=== PATIENT | female | born 1990 | race Caucasian/White ===

== ENCOUNTER 2017-08-13 12:42 | Emergency (ER) | payer MEDICAID ==
[2017-08-13 12:55] VITALS: RESP 18
[2017-08-13] MEDS ORDERED: Sodium Chloride 0.9% 1,000 ML IV STA (13:39)
[2017-08-13] MEDS ORDERED: Sodium Chloride 0.9% 1,000 ML ONE (13:42)
--- NOTE | 2017-08-13 13:45 | C.PDOC ---
History Of Present Illness 27 y/o female with PMHx of DM presents to ED with complaints of pain to both ears for 2 days. Patient states she is currently on Insulin and Metformin for diabetes. At ED patient state she is compliant with medication but reports sugar levels having maintained high for 1 week. Patient denies fever, sore throat, nausea, vomiting, headache or any other complaints at this time. Time Seen by Provider: 08/13/17 13:01 Chief Complaint (Nursing): ENT Problem History Per: Patient History/Exam Limitations: None Onset/Duration Of Symptoms: Days Current Symptoms Are (Timing): Still Present Quality (Ear): Pain W/Touch Past Medical History Reviewed: Historical Data, Nursing Documentation, Vital Signs Vital Signs: Last Vital Signs Temp 98.2 F 08/13/17 16:17 Pulse 75 08/13/17 16:17 Resp 18 08/13/17 16:17 BP 108/68 08/13/17 16:17 Pulse Ox 98 08/13/17 16:17 - Medical History PMH: No Chronic Diseases Surgical History: No Surg Hx Family History: States: No Known Family Hx - Social History Hx Alcohol Use: No Hx Substance Use: No - Immunization History Hx Tetanus Toxoid Vaccination: Yes Hx Influenza Vaccination: Yes Hx Pneumococcal Vaccination: Yes Review Of Systems Constitutional: Negative for: Fever, Chills ENT: Positive for: Ear Pain. Negative for: Ear Discharge, Throat Pain, Throat Swelling Cardiovascular: Negative for: Chest Pain Respiratory: Negative for: Shortness of Breath Skin: Negative for: Rash Neurological: Negative for: Headache Physical Exam - Physical Exam Appears: Non-toxic, No Acute Distress Skin: Normal Color, Warm, Dry, No Rash Head: Atraumatic, Normacephalic Eye(s): bilateral: Normal Inspection, PERRL, EOMI Ear(s): Bilateral: Other (TM mildly Hazy and bulging. External ear canals with mild erythema, no discharge. Tender to mastoid bilaterally) Oral Mucosa: Moist Throat: Normal, No Erythema, No Exudate Neck: Normal ROM, Supple Lymphatic: Adenopathy (preauricular) Chest: Symmetrical Cardiovascular: Rhythm Regular Respiratory: Normal Breath Sounds, No Accessory Muscle Use Gastrointestinal/Abdominal: Normal Exam, No Tenderness Extremity: Normal ROM, No Pedal Edema Neurological/Psych: Oriented x3, Normal Speech, Normal Cognition, Normal Cranial Nerves, Normal Motor, Normal Sensation ED Course And Treatment - Laboratory Results Result Diagrams: 08/13/17 14:00 08/13/17 14:00 O2 Sat by Pulse Oximetry: 100 (RA) Pulse Ox Interpretation: Normal Medical Decision Making Medical Decision Making: Accu check at ED was 300 Plan: CT scan, Full work up, UA. CT is negative for mastoiditis. Patient was treated with Insulin sq and Augmentin po. Patient was d/c home with PMD and ENT follow up. Disposition - Disposition Referrals: Roman Teran MD [Staff Provider] - Disposition: HOME/ ROUTINE Disposition Time: 15:57 Condition: STABLE Additional Instructions: Follow up with PMD and ENT specialist within 1-2 days. Return to ED if feel worse. Prescriptions: Amoxicillin/Clavulanate [Augmentin 875 MG-125 MG] 1 tab PO BID #14 tab Ciprofloxacin/Dexamethasone [Ciprodex 0.3%-0.1% 7.5 Ml] 4 drop OT BID #1 bottle Ibuprofen [Motrin Tab] 600 mg PO Q8 #30 tab Famotidine [Pepcid] 20 mg PO BID #20 tab Ondansetron ODT [Zofran ODT] 4 mg PO .Q4-6H PRN #20 odt PRN Reason: Nausea/Vomiting Instructions: Otitis Media (ED) Forms: [employer] (Hungarian), Work Excuse Print Language: ANDORRAN - Clinical Impression Clinical Impression: Otitis, Hyperglycemia - PA / RECRUITING TEAM LEAD / Resident Statement MD/DO has reviewed & agrees with the documentation as recorded. - Scribe Statement The provider has reviewed the documentation as recorded by the Milton Pierson All medical record entries made by the Milton were at my direction and personally dictated by me. I have reviewed the chart and agree that the record accurately reflects my personal performance of the history, physical exam, medical decision making, and the department course for this patient. I have also personally directed, reviewed, and agree with the discharge instructions and disposition.
[2017-08-13 14:03] LABS: EOS # 0.1 K/uL (0.0-0.7); LYMPH # 1.3 K/uL (1.0-4.3); MONO # 0.6 K/uL (0.0-0.8)
[2017-08-13 14:14] LABS: BASO % 0.4 % (0.0-2.0); EOS % 1.1 % (0.0-4.0); LYMPH % 18.6 % (20.0-40.0); MEAN CELL VOLUME 86.6 fL (81.0-99.0); MEAN CORPUSCULAR HEMOGLOBIN 29.3 pg (27.0-31.0); MEAN CORPUSCULAR HGB CONC 33.9 g/dL (33.0-37.0); MEAN PLATELET VOLUME 10.7 fL (7.2-11.7); MONO % 9.2 % (0.0-10.0); NRBC % 0.2 % (0.0-2.0); RED CELL DISTRIBUTION WIDTH 12.5 % (11.5-14.5)
[2017-08-13 14:16] LABS: CHLORIDE 95 mmol/L (98-107); POTASSIUM 4.3 mmol/L (3.6-5.2); SODIUM 131 mmol/L (132-148)
[2017-08-13 14:18] LABS: GFR AFRICAN-AMERICAN > 60
[2017-08-13 14:19] LABS: ALB/GLOB RATIO 1.7 (1.0-2.1); ALKALINE PHOSPHATASE 50 U/L (38-126); ALT/SGPT 26 U/L (9-52); AST/SGOT 24 U/L (14-36); BILIRUBIN,TOTAL 2.5 mg/dL (0.2-1.3); BLOOD UREA NITROGEN 14 mg/dL (7-17); CALCIUM 8.9 mg/dl (8.6-10.4); CARBON DIOXIDE 24 mmol/L (22-30); GLUCOSE,RANDOM 342 mg/dL (65-105); TOTAL PROTEIN 7.7 g/dL (6.3-8.3)
--- NOTE | 2017-08-13 15:16 | CT ---
PROCEDURE: CT OF THE TEMPORAL BONES WITHOUT CONTRAST HISTORY: IDDM, bilateral earache and mastoid tenderness COMPARISON: None available. TECHNIQUE: High resolution axial images of the temporal bones were obtained. Coronal and sagittal reformats were generated. Radiation dose: Total exam DLP = 650.99 mGy-cm. This CT exam was performed using one or more of the following dose reduction techniques: Automated exposure control, adjustment of the mA and/or kV according to patient size, and/or use of iterative reconstruction technique. FINDINGS: RIGHT TEMPORAL BONE: RIGHT MIDDLE EAR: Normal. RIGHT INNER EAR: Cochlea: Normal. Semicircular canals: Normal. RIGHT MASTOID AIR CELLS: Normal. RIGHT INTERNAL AUDITORY CANAL: Normal. RIGHT EXTERNAL AUDITORY CANAL: Normal. RIGHT VESTIBULAR AND COCHLEAR AQUEDUCT: Normal. OTHER FINDINGS: None. LEFT TEMPORAL BONE: LEFT MIDDLE EAR: Normal. LEFT INNER EAR: Cochlea: Normal. Semicircular canals: Normal. LEFT MASTOID AIR CELLS: Normal. LEFT INTERNAL AUDITORY CANAL: Normal. LEFT EXTERNAL AUDITORY CANAL: Normal. LEFT VESTIBULAR AND COCHLEAR AQUEDUCTS: Normal. OTHER FINDINGS: Small focal area polypoid like mucosal thickening left maxillary antrum. Left IMPRESSION: Unremarkable non contrast enhanced CT of the temporal bones with no evidence of acute otitis media or mastoiditis.
[2017-08-13] MEDS ORDERED: (Novolin R) Insulin Human Regular 100 units/ml vial SC ONE (15:30)
[2017-08-13] MEDS ORDERED: Amoxicillin-Clav 875-125 mg Tab PO STA (15:35)
[2017-08-13] MEDS ORDERED: Amoxicillin-Clav 875-125 mg Tab PO ONE (15:39)
[2017-08-13] MEDS ORDERED: (Novolin R) Insulin Human Regular 100 units/ml vial ONE (15:43)
[2017-08-13 16:18] VITALS: BP 108/68; PULSE 75; TEMP 98.2
[2017-08-14 09:59] VITALS: O2SAT 100
== END 2017-08-13 16:34 | disposition home or self-care (01) ==
LOC: C.ER 12:42
DX: H66.93 Otitis media, unspecified, bilateral (principal); E11.65 Type 2 diabetes mellitus with hyperglycemia; Z79.4 Long term (current) use of insulin; Z79.84 Long term (current) use of oral hypoglycemic drugs
CPT/HCPCS: 70480; 80053; 82009; 82948; 85025; 96360; 99283; J7040

== ENCOUNTER 2018-05-07 21:25 | Emergency (ER) | payer SELFPAY ==
[2018-05-07 21:47] LABS: SQUAMOUS EPITHIAL 1 /hpf (0-5); URINE BILIRUBIN NEGATIVE (NEGATIVE); URINE BLOOD NEGATIVE (NEGATIVE); URINE CLARITY Clear (Clear); URINE COLOR Straw (YELLOW); URINE GLUCOSE (UA) 3+ mg/dL (Normal); URINE LEUKOCYTE ESTERASE NEG Leu/uL (Negative); URINE PROTEIN NEGATIVE (NEGATIVE); URINE UROBILINOGEN NORMAL mg/dL (0.2-1.0)
[2018-05-07] MEDS ORDERED: Sodium Chloride 0.9% 1,000 ML IV ONE (21:49)
[2018-05-07] MEDS ORDERED: Sodium Chloride 0.9% 1,000 ML ONE (21:49)
[2018-05-07 21:53] LABS: HCG,QUALITATIVE URINE NEGATIVE (NEGATIVE)
[2018-05-07 22:01] LABS: BASO % 0.7 % (0.0-2.0); EOS # 0.1 K/uL (0.0-0.7); EOS % 1.9 % (0.0-4.0); HEMOGLOBIN 12.6 g/dL (11.0-16.0); LYMPH # 1.6 K/uL (1.0-4.3); MEAN CELL VOLUME 88.2 fL (81.0-99.0); MEAN CORPUSCULAR HEMOGLOBIN 29.5 pg (27.0-31.0); MEAN CORPUSCULAR HGB CONC 33.4 g/dL (33.0-37.0); MEAN PLATELET VOLUME 9.6 fL (7.2-11.7); MONO # 0.4 K/uL (0.0-0.8); MONO % 8.3 % (0.0-10.0); NEUT # 2.9 K/uL (1.8-7.0); NEUT % 57.1 % (50.0-75.0); NRBC % 0.1 % (0.0-2.0); RBC 4.26 Mil/uL (3.80-5.20); RED CELL DISTRIBUTION WIDTH 12.8 % (11.5-14.5)
[2018-05-07 22:14] LABS: ALB/GLOB RATIO 1.8 (1.0-2.1); ALBUMIN 4.8 g/dL (3.5-5.0); ALT/SGPT 21 U/L (9-52); AST/SGOT 11 U/L (14-36); BLOOD UREA NITROGEN 12 mg/dL (7-17); CALCIUM 9.6 mg/dl (8.6-10.4); GFR AFRICAN-AMERICAN > 60; GFR NON-AFRICAN AMERICAN > 60
[2018-05-07] MEDS ORDERED: (Novolin R) Insulin Human Regular 100 units/ml vial IV ONE (22:25)
[2018-05-07] MEDS ORDERED: (Novolin R) Insulin Human Regular 100 units/ml vial ONE (23:27)
--- NOTE | 2018-05-07 23:44 | C.PDOC ---
Time Seen by Provider: 05/07/18 21:53 Chief Complaint (Nursing): Abdominal Pain History Per: Patient Onset/Duration Of Symptoms: Hrs (since this morning) Current Symptoms Are (Timing): Still Present Severity: Moderate Location Of Pain/Discomfort: RLQ (pelvis) Quality Of Discomfort: "Pain" Exacerbating Factors: None Additional History Per: Prior Records Abnormal Vaginal Bleeding: No Past Medical History Reviewed: Historical Data, Nursing Documentation, Vital Signs Vital Signs: Last Vital Signs Temp 98.2 F 05/07/18 21:29 Pulse 89 05/07/18 23:45 Resp 18 05/07/18 23:45 BP 112/64 05/07/18 23:45 Pulse Ox 100 05/08/18 00:12 - Medical History PMH: Diabetes Surgical History: No Surg Hx Family History: States: Unknown Family Hx - Social History Hx Alcohol Use: No Hx Substance Use: No - Immunization History Hx Tetanus Toxoid Vaccination: Yes Hx Influenza Vaccination: Yes Hx Pneumococcal Vaccination: Yes Review Of Systems Except As Marked, All Systems Reviewed And Found Negative. Constitutional: Negative for: Fever, Weakness Cardiovascular: Negative for: Chest Pain Respiratory: Negative for: Shortness of Breath Gastrointestinal: Negative for: Vomiting, Diarrhea Genitourinary: Positive for: Pelvic Pain (right). Negative for: Dysuria, Vaginal Discharge, Vaginal Bleeding Musculoskeletal: Negative for: Neck Pain, Back Pain Skin: Negative for: Rash Neurological: Negative for: Weakness, Numbness Physical Exam - Physical Exam Appears: Non-toxic, No Acute Distress Skin: Normal Color, Warm, Dry, No Rash Head: Atraumatic, Normacephalic Eye(s): bilateral: PERRL, EOMI Neck: Normal ROM, Supple Cardiovascular: Rhythm Regular Respiratory: Normal Breath Sounds, No Accessory Muscle Use Gastrointestinal/Abdominal: Soft, Tenderness (mild right pelvic area), No Guarding, No Rebound Back: No CVA Tenderness Extremity: Normal ROM Neurological/Psych: Oriented x3, Normal Motor, Normal Sensation ED Course And Treatment - Laboratory Results Result Diagrams: 05/07/18 21:57 05/07/18 21:57 Lab Interpretation: Abnormal Interpretation Of Abnormal: Hyperglycemia Urine POC: Negative O2 Sat by Pulse Oximetry: 100 Pulse Ox Interpretation: Normal - CT Scan/US Pelvic US Other Rad Studies (CT/US): Read By Radiologist, Radiology Report Reviewed CT/US Interpretation: FINDINGS: Uterus/cervix: Retroverted uterus. No myometrial mass. Endometrium: 1.1 cm in thickness. Right ovary: 2.5 x 1.6 x 2.0 cm dominant follicle. Small follicles. Normal flow. Left ovary: No mass. Small follicles. Normal flow. Free fluid: Trace free fluid within pelvis. IMPRESSION: 1. No acute findings. 2. Non-acute findings are described above. Progress Note: Pt states that she stopped taking her Janumet a couple of weeks ago because she ran out of it and could not see her doctor because she lost her insurance. Reassessment Condition: Improved Progress - Interventions Interventions:: Observation, Intravenous fluid - Medications Administered Intravenous: NSAID, Other (Insulin) - Data Reviewed Data Reviewed: Lab, Diagnostic imaging, Old records - Patient Status Patient status: Mostly improved - Continuity of Care Discussed patient case with:: Patient, Family-HIPPA compliant, ED Nurse - Patient Plan Patient Plan: Discharge, F/U with PCP, Continue present meds Disposition Counseled Patient/Family Regarding: Studies Performed, Diagnosis, Need For Followup, Rx Given - Disposition Referrals: [facility] [Outside] Disposition: HOME/ ROUTINE Disposition Time: 00:08 Condition: IMPROVED Additional Instructions: Follow up with your doctor or in the clinic for further evaluation and treatment. Return to the ER if you develop fever, vomiting, vaginal discharge, worsening of symptoms or if you have any other concerns. Prescriptions: Sitagliptin Phos/Metformin HCl [Janumet 50-1,000 mg Tablet] 1 each PO BID #60 tablet Instructions: Painful Ovulation (DC) Forms: Gen Discharge Inst Latvian Print Language: MOZAMBICAN - Clinical Impression Clinical Impression: Uncontrolled diabetes mellitus, Acute pelvic pain, female
[2018-05-07 23:45] VITALS: BP 112/64; PULSE 89; RESP 18
[2018-05-07 23:46] VITALS: O2SAT 100
[2018-05-08 00:33] VITALS: TEMP 98.4
--- NOTE | 2018-05-08 08:45 | US ---
Date of service: 05/07/2018 HISTORY: Pelvic pain started today COMPARISON: None available. TECHNIQUE: Transabdominal and transvaginal pelvic ultrasound was performed. FINDINGS: UTERUS: Measures 8.6 x 3.6 x 5.3 cm. Retroverted, normal in size and appearance. No fibroid or other mass lesion seen. ENDOMETRIUM: Measures 11 mm in diameter. Unremarkable. CERVIX: No cervical abnormality identified. RIGHT OVARY: Measures 4.2 x 2.4 x 3.0 cm. No solid mass. Normal flow. There is a 2.5 x 1.6 x 2.0 cm simple cyst. LEFT OVARY: Measures 3.8 x 1.9 x 2.4 cm. No solid mass. Normal flow. FREE FLUID: Small amount of free fluid in the cul de sac is likely physiologic. OTHER FINDINGS: None. IMPRESSION: 2.5 cm simple cyst in the right ovary. Small amount of free fluid in the pelvis is likely physiologic. A preliminary report was provided by [facility].
== END 2018-05-08 00:33 | disposition home or self-care (01) ==
LOC: C.ER 21:25
DX: R10.2 Pelvic and perineal pain (principal); E11.65 Type 2 diabetes mellitus with hyperglycemia; Z79.84 Long term (current) use of oral hypoglycemic drugs
CPT/HCPCS: 76830; 76856; 80053; 81001; 82009; 82948; 84703; 85025; 96361; 96374; 96375; 99285; J1885; J7030

== ENCOUNTER 2018-10-14 18:44 | Emergency (ER) | payer MEDICAID ==
[2018-10-14 18:54] VITALS: BP 103/67; PULSE 79; RESP 18; TEMP 98.1; O2SAT 100
--- NOTE | 2018-10-14 20:22 | C.PDOC ---
History Of Present Illness The patient is a 28 year old female who underwent a hernia repair surgery by Dr. Cabello in June 2018. Patient presents to the ED today, stating the incision site has not fully closed and she has been experiencing intermittent drainage from the area. Patient is also complaining of a dry rash to her back that has not resolved since her surgery. Patient denies fever, chills, or pain to the site. Time Seen by Provider: 10/14/18 19:46 Chief Complaint (Nursing): Abnormal Skin Integrity History Per: Patient History/Exam Limitations: no limitations Onset/Duration Of Symptoms: Days Current Symptoms Are (Timing): Still Present Quality Of Symptoms: Draining. denies: Painful Additional History Per: Patient Past Medical History Reviewed: Historical Data, Nursing Documentation, Vital Signs Vital Signs: Last Vital Signs Temp 98.1 F 10/14/18 18:49 Pulse 79 10/14/18 18:49 Resp 18 10/14/18 18:49 BP 103/67 10/14/18 18:49 Pulse Ox 100 10/14/18 18:49 - Medical History PMH: Diabetes Denies: Chronic Kidney Disease Surgical History: No Surg Hx Family History: States: Unknown Family Hx - Social History Hx Alcohol Use: No Hx Substance Use: No - Immunization History Hx Tetanus Toxoid Vaccination: Yes Hx Influenza Vaccination: Yes Hx Pneumococcal Vaccination: Yes Review Of Systems Constitutional: Negative for: Fever, Chills Skin: Positive for: Other (drainage from umbilical incision s/p hernia repair ) Physical Exam - Physical Exam Appears: Non-toxic, No Acute Distress Skin: Warm, Dry, Rash (dry, hyperpigmented rash diffusely to back ), Other (punctate wound to the umbilicus with minimal moist, non-purulent drainage from the area. no fluctuant mass, no erythema, no warmth ) Head: Atraumatic, Normacephalic Eye(s): bilateral: Normal Inspection Gastrointestinal/Abdominal: Soft, No Tenderness, No Guarding, No Rebound Extremity: Normal ROM, Capillary Refill (less than 2 seconds ) Neurological/Psych: Oriented x3, Normal Speech, Normal Cognition ED Course And Treatment O2 Sat by Pulse Oximetry: 100 (on RA) Pulse Ox Interpretation: Normal Progress Note: On reassessment, patient is resting comfortably, showing no signs of distress and is stable for discharge. Patient states she is scheduled for an appointment with Dr. Cabello next week. Patient is advised to continue wound care and apply topical antibiotic ointment to the area. Patient given return instructions. Disposition Counseled Patient/Family Regarding: Diagnosis, Need For Followup, Rx Given - Disposition Disposition: HOME/ ROUTINE Disposition Time: 20:20 Condition: STABLE Additional Instructions: Please follow up with Dr Larios as scheduled nxt week May use hydrocortisone oint to back Return to ER if worse Prescriptions: Hydrocortisone 1% Cream [Cortizone 1% Cream] 1 appl TP BID #60 g Instructions: Surgical Wound (DC), Skin Rash (DC) Forms: [employer] (Indonesian) - Clinical Impression Clinical Impression: Visit for wound check, Dermatitis - PA / INDEPENDENT PRODUCER / Resident Statement MD/DO has reviewed & agrees with the documentation as recorded. - Scribe Statement The provider has reviewed the documentation as recorded by the Scribe (Fatimah Rosales) All medical record entries made by the Scribe were at my direction and personally dictated by me. I have reviewed the chart and agree that the record accurately reflects my personal performance of the history, physical exam, medical decision making, and the department course for this patient. I have also personally directed, reviewed, and agree with the discharge instructions and disposition.
== END 2018-10-14 20:30 | disposition home or self-care (01) ==
LOC: C.ER 18:44
DX: L30.9 Dermatitis, unspecified (principal); Z48.00 Encounter for change or removal of nonsurgical wound dressing; E11.9 Type 2 diabetes mellitus without complications

== ENCOUNTER 2018-12-02 13:12 | Emergency (ER) | payer MEDICAID ==
[2018-12-02 13:37] VITALS: RESP 16; TEMP 98.1
--- NOTE | 2018-12-02 14:26 | RAD ---
Date of service: 12/02/2018 HISTORY: Cough and fever COMPARISON: No prior. TECHNIQUE: Chest PA and lateral FINDINGS: LINES AND TUBES: None. LUNG AND PLEURA: The lungs are well inflated and clear. No pleural effusion or pneumothorax. HEART AND MEDIASTINUM: The heart is not enlarged. No aortic atherosclerotic calcifications present. The hilar and mediastinal contours are within normal limits. SKELETAL STRUCTURES: The bony structures are within normal limits for the patient's age. VISUALIZED UPPER ABDOMEN: Normal. OTHER FINDINGS: None. IMPRESSION: No active pulmonary disease.
[2018-12-02 14:38] LABS: INFLUENZA A B NEGATIVE FOR FLU A/B (NEGATIVE)
[2018-12-02 14:52] VITALS: BP 128/85; PULSE 78; O2SAT 98
--- NOTE | 2018-12-02 15:34 | C.PDOC ---
History Of Present Illness 28 y/o female with no PMHx presents to the ED for evaluation of sore throat, cough, and congestion for the last 2 days. Sore throat worse with swallowing. Cough is productive of white phlegm. Associated with a subjective fever. Patient is still tolerating PO. Denies recent travel. + Sick contact in the patients daughter. No flu vaccine this year. Denies any rashes, neck pain or stiffness, abdominal pain, nausea, vomiting, or urinary complaints. HPI: Influenza Time Seen by Provider: 12/02/18 13:34 Chief Complaint: Cough, Cold, Congestion Chief Complaint (Provider): Cough, Cold, Congestion History Per: Patient Exam Limitations: no limitations Have you had recent travel within the past 21 days to any of the following countries: [place], [place], [place] or [place]?: No Onset/Duration Of Symptoms: Days (2) Symptoms include: fever, sore throat, cough, nasal congestion Sick Contacts (Context): Family Member(s) (Daughter) Hx Influenza Vaccination: No Past Medical History Reviewed: Historical Data, Nursing Documentation, Vital Signs Vital Signs: Last Vital Signs Temp 98.1 F 12/02/18 13:34 Pulse 78 12/02/18 14:51 Resp 16 12/02/18 14:51 BP 128/85 12/02/18 14:51 Pulse Ox 98 12/02/18 14:51 - Medical History PMH: Diabetes Denies: Chronic Kidney Disease Family History: States: Unknown Family Hx - Social History Hx Alcohol Use: No Hx Substance Use: No - Immunization History Hx Tetanus Toxoid Vaccination: Yes Hx Influenza Vaccination: Yes Hx Pneumococcal Vaccination: Yes Review Of Systems Constitutional: Positive for: Fever Eyes: Negative for: Vision Change ENT: Positive for: Nose Discharge, Nose Congestion, Throat Pain Cardiovascular: Negative for: Chest Pain Respiratory: Positive for: Cough. Negative for: Shortness of Breath, Wheezing Gastrointestinal: Negative for: Nausea, Vomiting, Diarrhea Skin: Negative for: Rash Neurological: Negative for: Weakness, Numbness Physical Exam - Physical Exam Appears: Well, Non-toxic, No Acute Distress Skin: Warm, Dry, No Rash Head: Atraumatic, Normacephalic Eye(s): bilateral: Normal Inspection, PERRL, EOMI Ear(s): Bilateral: Normal Nose: Normal Oral Mucosa: Moist Throat: Normal, No Erythema, No Exudate Neck: Normal ROM Chest: Symmetrical Cardiovascular: Rhythm Regular, No Murmur Respiratory: Normal Breath Sounds, No Rales, No Rhonchi, No Wheezing Gastrointestinal/Abdominal: Soft, No Tenderness Extremity: Normal ROM, Capillary Refill (<2s) Extremity: Bilateral: Atraumatic, Normal Color And Temperature Pulses: Left Radial: Normal, Right Radial: Normal Neurological/Psych: Oriented x3, Normal Speech, Normal Motor, Normal Sensation Gait: Steady Medical Decision Making Medical Decision Making: Plan: - Chest x-ray - Rapid strep test - Flu swab - Throat culture sent CXR shows no acute disease. Labs reviewed: negative strep and flu Counseled patient regarding dx of viral URI. Provided rx for cough medication. Advised PMD followup tomorrow Patient remains afebrile and is stable for discharge home. Diagnostic testing results and plan of care discussed with patient. Strict instructions given regarding prescription use, importance of followup, and signs/symptoms to return to ER including difficulty breathing, chest pain, or any other new/worsening symptoms. Pt verbalized understanding of discussion. Patient is A&Ox3, ambulating with steady gait, with vital signs stable for discharge. - ECG O2 Sat by Pulse Oximetry: 98 (RA) Pulse Ox Interpretation: Normal - Other Rad CXR X-Ray: Read By Radiologist X-Ray Interpretation: No active pulmonary disease. Disposition Counseled Patient/Family Regarding: Diagnosis, Need For Followup, Rx Given - Disposition Referrals: [facility] at [facility] [Outside] Disposition: HOME/ ROUTINE Disposition Time: 14:46 Condition: STABLE Additional Instructions: Aumentar los fluidos Tylenol / motrin para el dolor y la fiebre Tessalon perles cada 8 horas segn sea necesario para la tos [place], no actividad vigorosa. Seguimiento con mdico primario en 2 mason. Prescriptions: Benzonatate [Tessalon Perle] 100 mg PO Q8H PRN #15 capsule PRN Reason: Cough Instructions: Upper Respiratory Infection (ED) Forms: Gen Discharge Inst Taiwanese, [employer] Connect (Kazakh), Work Excuse Print Language: SERBIAN - Clinical Impression Clinical Impression: Upper respiratory infection - PA / RESEARCH AND DEVELOPMENT DIRECTOR / Resident Statement MD/DO has reviewed & agrees with the documentation as recorded. - Scribe Statement The provider has reviewed the documentation as recorded by the Milton Underwood All medical record entries made by the Milton were at my direction and personally dictated by me. I have reviewed the chart and agree that the record accurately reflects my personal performance of the history, physical exam, medical decision making, and the department course for this patient. I have also personally directed, reviewed, and agree with the discharge instructions and disposition.
== END 2018-12-02 14:51 | disposition home or self-care (01) ==
LOC: C.ER 13:12
DX: J06.9 Acute upper respiratory infection, unspecified (principal)

== ENCOUNTER 2019-01-04 11:45 | Emergency (ER) | payer MEDICAID ==
[2019-01-04 12:54] VITALS: BMI 21.7
--- NOTE | 2019-01-04 13:16 | C.PDOC ---
History Of Present Illness 28 year old female, whose past medical history includes IDDM, presents to the ED for evaluation of generalized body aches x 3 days. Patient complains of body aches, ear pain, throat pain, back pain, and elbow pain. She also reports fever and slight nausea. She denies vomiting, diarrhea. She has not taken any medication today, and did not receive her flu vaccination this season. Time Seen by Provider: 01/04/19 12:46 Chief Complaint (Nursing): Cough, Cold, Congestion History Per: Patient History/Exam Limitations: no limitations Onset/Duration Of Symptoms: Hrs Current Symptoms Are (Timing): Still Present Past Medical History Reviewed: Historical Data, Nursing Documentation, Vital Signs - Medical History PMH: No Chronic Diseases, Diabetes Denies: Chronic Kidney Disease Surgical History: No Surg Hx Family History: States: Unknown Family Hx - Social History Hx Alcohol Use: No Hx Substance Use: No - Immunization History Hx Tetanus Toxoid Vaccination: Yes Hx Influenza Vaccination: Yes Hx Pneumococcal Vaccination: Yes Review Of Systems Constitutional: Positive for: Fever ENT: Positive for: Throat Pain Gastrointestinal: Positive for: Nausea. Negative for: Vomiting, Diarrhea Musculoskeletal: Positive for: Back Pain, Other (elbow pain, generalized body aches ) Physical Exam - Physical Exam Appears: Non-toxic, No Acute Distress Skin: Normal Color, Warm, Dry Head: Atraumatic, Normacephalic Eye(s): bilateral: Normal Inspection Ear(s): Bilateral: Normal Nose: Normal, No Discharge Oral Mucosa: Moist Throat: Erythema (mild), No Exudate Neck: Supple Chest: Symmetrical, No Deformity, No Tenderness Cardiovascular: Rhythm Regular, No Murmur Respiratory: Normal Breath Sounds, No Rales, No Rhonchi, No Wheezing Gastrointestinal/Abdominal: Soft, No Tenderness, No Guarding, No Rebound Extremity: Normal ROM Neurological/Psych: Oriented x3, Normal Speech, Normal Cognition Medical Decision Making Medical Decision Making: Progress: Flu swab ordered and reviewed. Tylenol PO, Motrin PO and Tamiflu PO given. On reassessment, patient is resting comfortably, showing no signs of distress and reports an improvement in her symptoms. Patient is stable for discharge and is advised to f/u with her PMD within 1-2 days for further evaluation. Disposition Counseled Patient/Family Regarding: Diagnosis - Disposition Disposition: HOME/ ROUTINE Disposition Time: 14:02 Condition: STABLE Additional Instructions: Tagwhat Prescriptions: Ibuprofen [Motrin] 600 mg PO TID #24 tab Oseltamivir Phosphate [Tamiflu] 75 mg PO DAILY #5 capsule Instructions: Influenza (ED) Forms: Gen Discharge Inst American, [employer] (American) - POA Present On Arrival: None - Clinical Impression Clinical Impression: Influenza-like illness - Scribe Statement The provider has reviewed the documentation as recorded by the Scribe (Fatimah Rosales) Provider Attestation: All medical record entries made by the Scribe were at my direction and personally dictated by me. I have reviewed the chart and agree that the record accurately reflects my personal performance of the history, physical exam, medical decision making, and the department course for this patient. I have also personally directed, reviewed, and agree with the discharge instructions and disposition.
[2019-01-04 15:08] VITALS: TEMP 99.4
== END 2019-01-04 15:07 | disposition home or self-care (01) ==
LOC: C.ER 11:45
DX: J11.1 Influenza due to unidentified influenza virus with other respiratory manifestations (principal); E10.9 Type 1 diabetes mellitus without complications; Z79.4 Long term (current) use of insulin